=== PATIENT | female | born 1995 | race Two or more races ===

== ENCOUNTER 2019-11-16 11:17 | Emergency (ER) | payer SELFPAY ==
[~2019-11-16] VITALS: Ht 154.9 cm; Wt 44.0 kg
[2019-11-16 11:36] VITALS: BP 133/74
== END 2019-11-16 13:17 | disposition home or self-care (01) ==
LOC: ER 11:22
DX: S46.912A Strain of unspecified muscle, fascia and tendon at shoulder and upper arm level, left arm, initial encounter (principal); X50.9XXA Other and unspecified overexertion or strenuous movements or postures, initial encounter; Y93.89 Activity, other specified; Y99.8 Other external cause status; Y92.89 Other specified places as the place of occurrence of the external cause
CPT/HCPCS: 73030